=== PATIENT | male | born 1970 | race Two or more races ===

== ENCOUNTER 2018-05-31 22:51 | Emergency (ER) | payer OTHER ==
[~2018-05-31] VITALS: Ht 167.6 cm; Wt 90.7 kg
[2018-05-31 23:25] VITALS: BP 136/94
[2018-06-01] MEDS ORDERED: KETOROLAC TROMETH 60MG/2ML VIAL IM ONE (03:15)
== END 2018-06-01 03:58 | disposition home or self-care (01) ==
LOC: ER 22:54
DX: S82.832A Other fracture of upper and lower end of left fibula, initial encounter for closed fracture (principal); W23.0XXA Caught, crushed, jammed, or pinched between moving objects, initial encounter; Y93.89 Activity, other specified; Y99.8 Other external cause status; Y92.89 Other specified places as the place of occurrence of the external cause
CPT/HCPCS: 29515; 73610; 73630; 96372; 99284; J1885